=== PATIENT | female | born 1995 | race American Indian/Alaskan Native ===

== ENCOUNTER 2019-04-14 11:56 | Outpatient (CLI) | payer OTHER ==
--- NOTE | 2019-04-14 13:05 | XRay Report ---
RIGHT AND LEFT CALCANEUS, AP AND LATERAL VIEWS (4 IMAGES) INDICATION: M79.671Pain in right foot/M79.672Pain in left foot. COMPARISON: No relevant prior imaging study available. FINDINGS: There is mild symmetric calcaneal enthesopathy at the Achilles and plantar fascia attachments. No acu te fracture or dislocation is seen. IMPRESSION: 1. Enthesopathic changes. Signer Name: Chevy Barrientos MD Signed: 04/14/2019 1:01 PM Workstation Name: [id number]
== END 2019-04-14 11:57 | disposition home or self-care (01) ==
LOC: XRAY 11:56
PROVIDERS: ATTEND Internal Medicine
DX: M77.32 Calcaneal spur, left foot (principal); M77.31 Calcaneal spur, right foot